=== PATIENT | female | born 1970 | race Caucasian/White ===

== ENCOUNTER 2022-06-19 10:21 | Outpatient (CLI) | payer OTHER, SELFPAY ==
--- OUTSIDE RECORDS SUMMARY | 2022-06-19 10:26 | XMS_ITS ---
:1970 Author Care Team Providers Name Role Phone Juan Carlos Duong Primary Care Provider Unavailable Allergies None recorded. Medications Name Status Start Date Stop Date ? ? albuterol sulfate HFA 90 mcg/actuation aerosol inhaler Active ? Not available erythromycin 5 mg/gram (0.5 %) eye ointment Active ? Not available lisinopril 20 mg-hydrochlorothiazide 12.5 mg tablet Active ? Not available TAKE 1 TABLET BY MOUTH DAILY nabumetone 500 mg tablet Active ? Not meghan ilable TAKE 1 TO 2 TABLETS BY MOUTH TWICE DAILY OneTouch Delica Plus Lancet 33 gauge Active ? Not available USE TO TEST TWICE DAILY OneTouch Ultra Test strips Active ? Not a vailable USE TO TEST ONCE DAILY TWICE DAILY NEEDED venlafaxine ER 37.5 mg capsule,extended release 24 hr Active ? Not available TAKE 1 CAPSULE BY MOUTH DAILY venlafaxine ER 75 mg capsule,extended release 24 hr Active ? Not available TAKE 1 CAPSULE BY MOUTH DAILY Problems None recorded. Procedures None recorded. Results Lab Results Date Name Specimen Result Interpretation Description Value Range Status Address ? 08/15/2021 Test in ? Message: ? ? Final Qu est Question- Diagnos tics Unlabeled - [place] [facility]: [address], [place] ? ? ? Specimen 2ss ? Final [facility] Type: Diagnostic s - [facility]: [address], [place] ? ? ? Test 4439/52 ? Final [facility] Ordered on Diagn ostics Req: - [facility]: [address], [place] ? ? ? Comment ? ? Final [facility] Diagnostic s - [place] [facility] Lab: [address], [place] 08/15/2021 MMR Immunity, Blood Normal Measles Ab 67.90 ? F inal [facility] Serum venous (IgG), AU/mL Diagnostic s Immune - [place] [facility] Status Lab: [address], [place] ? ? Blood Normal Mumps Virus 194.00 ? Final Ques t venous Ab (IgG), AU/mL Diagnos tics Immune - [place] [facility] Status Lab: [address], [place] ? ? Blood Normal Rubella Ab 4.42 ? Final [facility] venous (IgG), index Diagnostic s Immune - [place] [facility] Status Lab: [address], [place] 08/15/2021 Hepatitis B Blood Normal Hepatitis B 230 > Fi nal [facility] Surface Ab, venous Surface Ab mIU/mL or D iagnostics Quantitative, Immunity, Qn = - [place] Serum 10 Lab: [address], /mL [place] 08/15/2021 Varicella-zoste Blood Normal Varicella 751.00 ? Final [facility] r Igg Ab venous Zoster Virus index Di agnostics Screen, Serum Antibody - Fredis Leung (IgG) Lab: [address], [place] 08/15/2021 Patient Id ? Comment ? ? Final [facility] Approval Tiq Diag nostics Documentation - W ood Madhu Lab: [address], [place] ? ? ? Contact pankaj ? Final [facility] S Diagnostic s - [place] [facility] Lab: [address], [place] ? ? ? Tests all ? Final [facility] Affected tests Diagnost ics per - [place] [facility] order Lab: [address], [place] ? PPD (Purified ? No ? ? ? Protein observation Derivative), recorded. Skin Test Past Encounters 08/30/2021 Administrative Reason for Encounter; His tory and Physical Examination, Occupation [employer]: [address] , [place] [address], Ph. 08/15/2021 Juan Carlos Duong, , PA: [address] , [place] [address], Ph. Social History None recorded. Vaccine List Vaccine Type Hep B, adult 08/30/2021 influenza, injectable, quadrivalent, pre servative free 08/15/2021?0.5 mL Plan of Care Reminders Provider Appointments None recorded. ? ? Lab None recorded. ? ? Referral None recorded. ? ? Procedures None recorded. ? ? Surgeries None recorded. ? ? Imaging None recorded. ? ? Vitals None recorded.
[2022-06-19 14:55] LABS: Creatinine Urine 164.5 mg/dL
[2022-06-19 15:00] LABS: Microalbumin Creatinine Ratio 10 mg/g (0-30); Microalbumin Urine 2 mg/dL
[2022-06-19 22:12] LABS: Albumin* 4.5 g/dL (3.3-5.0); Chloride* 100 mmol/L (96-114); Sodium* 141 mmol/L (135-149)
[2022-06-19 22:13] LABS: Potassium* 5.2 mmol/L (3.6-5.1)
[2022-06-19 22:14] LABS: Cholesterol* 140 mg/dL (90-199)
[2022-06-19 22:15] LABS: Alanine Aminotransferase* 22 U/L (4-35); Alkaline Phosphatase* 89 U/L (40-150); Aspartate Amino Transferase* 22 U/L (12-35); Bilirubin Total* 0.2 mg/dL (0.1-1.5); Blood Urea Nitrogen* 26 mg/dL (7-30); Carbon Dioxide* 31 mmol/L (20-32); Creatinine* 0.7 mg/dL (0.5-1.5); Estimated Glomerular Filt Rate 103 ml/min; Glucose* 132 mg/dL (60-115); Total Protein* 7.8 g/dL (6.0-8.3); Triglycerides* 65 mg/dL (40-149)
[2022-06-19 22:16] LABS: Calcium* 9.1 mg/dL (8.4-10.6); HDL Cholesterol* 63 mg/dL (>=50); LDL Cholesterol Calculated 64 mg/dL (<100)
[2022-06-19 22:30] LABS: Vitamin D 25 Hydroxy* 60 ng/mL (30-80)
== END 2022-06-19 10:22 | disposition home or self-care (01) ==
PROVIDERS: PCP Family Medicine; Visit Provider Family Medicine
DX: E11.9 Type 2 diabetes mellitus without complications (principal); E78.00 Pure hypercholesterolemia, unspecified; E55.9 Vitamin D deficiency, unspecified
CPT/HCPCS: 80053; 80061; 82043; 82306; 82570

== ENCOUNTER 2023-01-25 17:40 | Emergency (ER) | payer OTHER, SELFPAY ==
[2023-01-25 19:14] VITALS: BP 135/89; PULSE 80; RESP 18; TEMP 36.3; O2SAT 99
--- NOTE | 2023-01-25 20:18 | CRLHL7_ITS ---
For Patients: As a result of the Cures Act, medical imaging exams and procedure reports are released immediately into your electronic medical record. You may view this report before your referring provider. If you have questions, please contact your health care provider. Indication: Trauma. Technique: Right knee, 2 views. Comparison: None. Findings/Impression: Bones: Alignment is normal. No fractures or bone lesions. No sign of acute injury. Joint spaces: Unremarkable. Soft tissues: Unremarkable. Dictated by Justin Cook MD @ 01/25/2023 9:00:46 PM (Electronically Signed)
[2023-01-25 21:00] VITALS: PULSE 84
--- NOTE | 2023-01-25 21:26 | ED_ITS ---
HPI - Extremity Injury (Lower) General Time Seen by Provider: 21:26 Date Seen: 01/25/23 Chief Complaint: Extremity Pain/Injury, Lower Stated Complaint: R knee pain Time Seen by Provider: 01/25/23 21:24 Source: patient, RN notes reviewed and old records reviewed Mode of arrival: wheelchair Limitations: no limitations History of Present Illness HPI Narrative: Patient is a very pleasant 52-year-old woman with history of left knee surgery who comes to the emergency room with complaints of right knee pain. Patient notes that approximately a week ago she sat down and felt and heard a crack in her right knee. She had some mild discomfort after that but has brat gradually been increasing and tonight the pain in her knee is so severe that she is having a hard time walking. She denies any shortness of breath, calf pain or history of DVT and has not been on any long car rides or plane trips. She notes her pain is mostly in the inside of her right knee and somewhat in the back. No swelling in this area. She did take Relafen earlier but it does not seem to be helping. Movement or weight-bearing definitely increases her discomfort. Related Data Home Medications Medication Instructions Recorded Confirmed hydrocortisone 2.5 % topical cream 1 applic topical 05/29/22 08/01/22 ketoconazole 2 % topical cream 1 applic topical 05/29/22 08/01/22 latanoprost 0.005 % eye drops drp ophthalmic (eye) 05/29/22 08/01/22 lisinopril 20 1 tab PO 05/29/22 08/01/22 mg-hydrochlorothiazide 12.5 mg tablet mupirocin 2 % topical ointment 1 applic topical 05/29/22 08/01/22 venlafaxine 75 mg capsule,extended 75 mg PO 05/29/22 08/01/22 release 24 hr Lcd 5% Salicyclic Acid topical 07/17/22 08/01/22 Multiple vitamin PO 07/17/22 08/01/22 Vitamin D&K PO 07/17/22 08/01/22 albuterol sulfate 90 mcg/actuation 2 inhalation PRN 07/17/22 08/01/22 aerosol inhaler magnesium oxide 400 mg (241.3 mg mg PO DAILY 07/17/22 08/01/22 magnesium) tablet Previous Rx's Medication Instructions Recorded cyclobenzaprine 10 mg tablet 10 mg PO TID PRN muscle spasm #60 06/16/22 tabs atorvastatin 10 mg tablet 10 mg PO QHS #90 tabs 11/09/22 nabumetone 500 mg tablet 500 mg PO TID PRN pain #90 tabs 11/14/22 semaglutide 0.25 mg or 0.5 mg (2 0.5 mg (0.8 mL) subcut QWEEK #3 mL 01/11/23 mg/3 mL) subcutaneous pen injector (Ventealapropriete) Allergies Allergy/AdvReac Type Severity Reaction Status Date / Time acetaminophen [From Percocet] Allergy Mild Itching Verified 10/23/22 15:57 cetirizine [From Zyrtec] Allergy Mild Itching Verified 10/23/22 15:57 oxycodone [From Percocet] Allergy Mild Itching Verified 10/23/22 15:57 Sulfa (Sulfonamide Allergy Mild itching Verified 10/23/22 15:57 Antibiotics) Review of Systems Status of ROS: Reports: 6 or more systems reviewed and unremarkable except as noted in History and below PFSH PFSH Medical History Rosacea blepharoconjunctivitis ?H10.829 - Rosacea conjunctivitis, unspecified eye (ICD-10) Achilles tendinosis of left lower extremity ?M67.88 - Other specified disorders of synovium and tendon, other site (ICD- 10) Surgical History History of lumbar discectomy ?Z98.890 - Other specified postprocedural states (ICD-10) S/P left knee arthroscopy ?Z98.890 - Other specified postprocedural states (ICD-10) History of arthroscopy of right shoulder (03/13/16) ?Z98.890 - Other specified postprocedural states (ICD-10) Social History (Updated 06/29/22 @ 09:16 by Thelma Damian ~ [facility], [facility]) Smoking Status: Former smoker What tobacco products do you use: cigarettes Smoking quit date/years: >15 years ago Do you use any of these nicotine containing products: None Second hand tobacco smoke exposure: No How often do you have a drink containing alcohol: never How often do you have six or more drinks on one occasion: Never AUDIT-C Alcohol total score: 0 Non-prescribed substance use: denies use Exam Narrative: Exam Narrative: Patient is alert and oriented. She has been waiting for an extended period of time and I sincerely appreciate her patient's No respiratory distress. Patient has some tenderness along the right medial knee line and along the medial aspect of the patella. She has also has tenderness noted in the medial popliteal fossa without any masses or nodules palpated. No calf pain with palpation Const: Vital Signs, click to edit/add: Vital Signs - 24 hr 01/25/23 19:14 01/25/23 21:00 01/25/23 22:00 Temperature 97.4 F L 98.0 F Pulse Rate [Right Dorsalis Pedis] 84 Pulse Rate [Right Pulse Oximeter] 80 Respiratory Rate 18 Blood Pressure [Ri ght Upper Arm] 135/89 Pulse Oximetry 99 Oxygen Delivery Me thod Room Air 01/25/23 22:50 01/25/23 22:51 01/25/23 22:52 Temperature 98.4 F 98.4 F 98.4 F Pulse Rate [Right Dorsalis Pedis] Pulse Rate [Right Pulse Oximeter] 74 74 Respiratory Rate 18 18 Blood Pressure [Ri ght Upper Arm] 122/74 122/74 Pulse Oximetry 99 Oxygen Delivery Me thod Room Air Course Course Hospital Course: Plain film of the knee had already been ordered by nursing staff due to high patient volume. I do think to do our due diligence will need to do an ultrasound to ensure no evidence of DVT given patient's pain behind the knee. Vital Signs Vital signs: Initial Vital Signs Temperature 97.4 F L 01/25/23 19:14 Temperature Source Temporal Artery Scan 01/25/23 19:14 Pulse Rate 80 01/25/23 19:14 Respiratory Rate 18 01/25/23 19:14 Blood Pressure 135/89 01/25/23 19:14 Blood Pressure Mean 104 01/25/23 19:14 Blood Pressure Position Sitting 01/25/23 19:14 Pulse Oximetry 99 01/25/23 19:14 Oxygen Delivery Method Room Air 01/25/23 19:14 Vital Signs Temperature 97.4 F L 01/25/23 19:14 Pulse Rate 80 01/25/23 19:14 Respiratory Rate 18 01/25/23 19:14 Blood Pressure 135/89 01/25/23 19:14 Pulse Oximetry 99 01/25/23 19:14 Oxygen Delivery Method Room Air 01/25/23 19:14 Temperature 98.4 F 01/25/23 22:52 Pulse Rate 74 01/25/23 22:52 Respiratory Rate 18 01/25/23 22:52 Blood Pressure 122/74 01/25/23 22:52 Pulse Oximetry 99 01/25/23 22:50 Oxygen Delivery Method Room Air 01/25/23 22:50 MDM - Extremity Injury (Lower) MDM Narrative Medical decision making narrative: 1. Right knee pain-suspect cartilaginous source with a tear or possibly flap causing discomfort. No evidence of DVT. X-ray is reassuring with no evidence of fracture. 2. Disposition-patient did remain in the ED for extended period while awaiting the ultrasound she was given [place] 01/3251 tablet p.o.. The plan had been to send her home on [place] we do not have any in [facility] and thus I did give her oxycodone 1 tablet p.o. see q.6 hours p.r.n. 4. Tablets. Further pain medications will need to be obtained through primary MD. I have instructed patient to follow-up with either primary MD or Orthopedics so as to be evaluated for possible MRI. Various asked me about the ER ordering the MRI but I have declined as I would not be able to follow up on those results. Patient has crutches at home. Will place in knee immobilizer. Partial weight-bearing for balance is suggested. Return to the emergency room for worsening symptoms. Medical Records Attestation: I reviewed the patient's medical records. Imaging Data Venous US: Attestation: I have reviewed the pertinent imaging results. Radiologist's impression: Deep veins: Sonographic imaging demonstrates the right common femoral, deep femoral, superficial femoral, popliteal, posterior tibial and the contralateral left common femoral veins to be fully compressible with normal color Doppler blood flow. Superficial veins: Greater saphenous vein is fully compressible. No popliteal cyst. IMPRESSION: Normal right lower extremity venous ultrasound, no sign of deep venous thrombosis. Right knee x-ray: Attestation: I have reviewed the pertinent imaging results. My impression: No obvious fractures. Radiologist's impression: Bones: Alignment is normal. No fractures or bone lesions.? No sign of acute injury.? Joint spaces: Unremarkable. Soft tissues: Unremarkable. Discharge Plan Discharge Clinical Impression: Acute injury of right knee cartilage Patient Disposition: Home, Self-Care Condition: Stable Additional Instructions: ibuprofen as needed for discomfort: [place] as needed for pain not relieved by ib uprofen or Relafen. [place] is a combination medication of Tylenol and a narcotic. Do not want to use alcohol nor use any benzodiazepine such as Ativan or Valium with it. knee immobilizer ice, crutches with partial weight bearing follow up with primary clinic for scheduling of an MRI: [facility] can also be reached at [phone] You may also elect o see ortho [phone] for an appointment Prescriptions: No Action latanoprost 0.005 % drops ophthalmic (eye) mupirocin 2 % ointment 1 applic topical Patient Comments: APPLY TOPICALLY TO THE AFFECTED AREA THREE TIMES DAILY lisinopril-hydrochlorothiazide 20-12.5 mg tablet 1 tab PO Patient Comments: TAKE 1 TABLET BY MOUTH DAILY ketoconazole 2 % cream 1 applic topical Patient Comments: APPLY TOPICALLY TO THE AFFECTED AREA AT BEDTIME hydrocortisone 2.5 % cream 1 applic topical Patient Comments: APPLY TOPICALLY TO THE AFFECTED AREA TWICE DAILY venlafaxine 75 mg capsule,extended release 24hr 75 mg PO cyclobenzaprine 10 mg tablet 10 mg PO TID PRN (Reason: muscle spasm) Qty: 60 1RF magnesium oxide 400 mg (241.3 mg magnesium) tablet PO DAILY Vitamin D&K PO Multiple vitamin PO albuterol sulfate 90 mcg/actuation HFA aerosol inhaler 2 inhalation PRN Lcd 5% Salicyclic Acid topical atorvastatin 10 mg tablet 10 mg PO QHS Qty: 90 2RF nabumetone 500 mg tablet 500 mg PO TID PRN (Reason: pain) Qty: 90 2RF Ozempic 0.25 mg or 0.5 mg (2 mg/3 mL) pen injector 0.5 mg subcut QWEEK Qty: 3 1RF Rx Instructions: NEW Dosing 0.5mg once weekly for diabetes Follow Up/Referrals: Ryne Hernandez MD [Primary Care Provider] - Stand Alone Forms: [facility]or Info Instructions
--- NOTE | 2023-01-25 21:26 | CRLHL7_ITS ---
For Patients: As a result of the Century Cures Act, medical imaging exams and procedure reports are released immediately into your electronic medical record. You may view this report before your referring provider. If you have questions, please contact your health care provider. INDICATION: Leg pain and swelling. TECHNIQUE: Ultrasound venous duplex lower right extremity. Compression venous exam was performed using river-scale, color Doppler, and spectral Doppler analysis. COMPARISON: None. FINDINGS: Deep veins: Sonographic imaging demonstrates the right common femoral, deep femoral, superficial femoral, popliteal, posterior tibial and the contralateral left common femoral veins to be fully compressible with normal color Doppler blood flow. Superficial veins: Greater saphenous vein is fully compressible. No popliteal cyst. IMPRESSION: Normal right lower extremity venous ultrasound, no sign of deep venous thrombosis. Dictated by Last Kong MD @ 01/25/2023 10:34:02 PM (Electronically Signed)
[2023-01-25 22:00] VITALS: TEMP 36.7
[2023-01-25] MEDS: HYDROCODONE-ACETAMIN 5-325 MG 1 TAB PO (22:00)
[2023-01-25 22:50] VITALS: BP 122/74; PULSE 74; RESP 18; TEMP 36.9; O2SAT 99
[2023-01-25 22:51] VITALS: TEMP 36.9
[2023-01-25 22:52] VITALS: BP 122/74; PULSE 74; RESP 18; TEMP 36.9
== END 2023-01-25 22:52 | disposition home or self-care (01) ==
PROVIDERS: Emergency Provider Family Medicine; PCP Family Medicine
DX: S80.911A Unspecified superficial injury of right knee, initial encounter (principal)
CPT/HCPCS: 73560; 93971; 99283; 99284; A9270

== ENCOUNTER 2023-08-27 09:19 | Outpatient (CLI) | payer OTHER, SELFPAY ==
--- OUTSIDE RECORDS SUMMARY | 2023-08-27 09:22 | XMS_ITS | Continuity of Care Document ---
Author Name Unknown Organization [facility] Address [address] [place] [address] Phone Care Team Providers Care Psychiatric Np Name Role Phone Oneal Avendano MD Unavailable Unavailable Allergies, Adverse Reactions, Alerts Substance Reaction Status Criticality OXYCODONE HCL Active No Information acetaminophen Active No Information CETIRIZINE HCL Active No Informatio n Medications Medication Instructions Dosage Effective Dates (start - stop) Status Comments atorvastatin 10 mg tablet take 1 tablet by oral route every day 10 MG - Active lisinopril 20 mg-hydrochlorothiazi de 12.5 mg tablet take 1 tablet by oral route every day 1.00 tablet - Active venlafaxine ER 75 mg tablet,extended release 24 hr take 1 tablet by oral route every day in the morning at the same time each day with food 75 MG - Active venlafaxine ER 37.5 mg tablet,extended release 24 hr take 1 tablet by oral route every day in the morning at the same time each day with food 37.5 MG - Active nabumetone 500 mg tablet take 1 Tablet by oral route 2 times every day 500 MG - Active K2-D3 10,000 (unknown strength) Not Available - Active POTASSIUM CITRATE ER (unknown strength) take 1 tablet by oral route every day Not Available - Active ONE-DAILY MULTI-VITAMIN (unknown strength) take 1 tablet by oral route every day with food Not Available - Active Vitamin C 1,000 mg tablet take 1 Tablet by Oral route every day 1 Tablet - Active CALCIUM MAGNESIUM (unknown strength) with zinc Not Available - Active hydrocortisone 2.5 % topical cream apply by topical route 2 times every day a thin layer to the affected area(s) 0.00 - Active ketoconazole 2 % topical cream apply by topical route every day to the affected area(s) 0.00 - Active latanoprost 0.005 % eye drops instill 1 drop by ophthalmic route every day into affected eye(s) in the evening 1.00 drop - Active ketoconazole 2 % shampoo apply by topical route every day to the affected area(s), lather, leave in place for 5 minutes, and then rinse off with water 0.00 - Active Relafen 500 mg Tab take 2 tablet (1000MG) by oral route 2 times every day - No Longer Active Aleve 220 mg Cap Take 1 daily - No Longer Active Yulia 180 mg Tab take 1 tablet (180MG) by oral route every day - No Longer Active Microgestin Fe 1.5/30 (28) 1.5 mg-30 mcg Tab take 1 tablet by oral route every day 1.00 tablet - No Longer Active Problems Condition Type Effective Dates (start - stop) Clini burak Status Comments No Known Problems Procedures Procedure Date Office/Outpatient Visit, New Routine Venipuncture Rbc Sed Rate, Nonautomated Assay Of Creatinine Assay Alkaline Phosphatase Transferase (Ast) (Sgot) Alanine Amino (Alt) (Sgpt) Assay Of Urea Nitrogen Assay Of Blood/Uric Acid CReactive Protein Complete Cbc WAuto Diff Wbc Office/Outpatient Visit, Est Results Test Name Date and Time Measure Units Reference Range Abnormal Flag Status Comments Panel Description: CBC 5 part diff Final Neutrophils# 2 10:27:00 3.93 K/uL 2.00-7.50 Final Neutrophil % 2 10:27:00 56.80 % 0.00-99.00 Final Eosinophil # 2 10:27:00 0.16 K/uL 0.00-0.50 Final Eosinophil % 2 10:27:00 2.30 % 0.00-7.00 Final Basophil # 2 10:27:00 0.06 K/uL 0.00-0.20 Final Basophil % 2 10:27:00 0.80 % 0.00-99.00 Final WBC 2 10:27:00 6.9 K/uL 4.0-10.0 Final RBC 2 10:27:00 4.95 M/uL 3.80-5.80 Final Hemoglobin 2 10:27:00 14.5 g/dL 11.5-16.0 Final Hematocrit 2 10:27:00 44.3 % 37.0-47.0 Final MCV 2 10:27:00 89 fL 80-100 Final MCH 2 10:27:00 29.3 pg 27.0-32.0 Final MCHC 2 10:27:00 32.7 g/dL 32.0-36.0 Final RDW 2 10:27:00 12.7 % 11.0-16.0 Final Platelet Count 2 10:27:00 174 K/uL 150-500 Final MPV 2 10:27:00 8.3 fL 6.0-11.0 Final Lymphocyte% 2 10:27:00 33.60 % 25.00-50.00 Final Lymphocyte # 2 10:27:00 2.3 K/uL 1.0-4.0 Final Monocytes # 2 10:27:00 0.45 K/uL 0.20-1.00 Final Monocytes % 2 10:27:00 6.50 % 2.00-10.00 Final Panel Description: ESR Final ESR 2 10:34:00 19 mm/hr 0-25 Final Panel Description: NSAID Final AST 2 11:13:00 27 U/L 5-34 Final ALT 2 11:13:00 27 IU/L 5-35 Final BUN 2 11:13:00 17.3 mg/dL 11.0-37.0 Final Creatinine 2 11:13:00 0.630 mg/dL 0.500-1.300 Final B/C Ratio 2 11:13:00 27.5 Ratio Final Uric Acid 2 11:13:00 5.7 mg/dL 2.6-6.0 Final Alk Phos 2 11:13:00 93 U/L 30-103 Final GFR 2 11:13:00 105.1 mL/min/1.7 3 m2 Final Panel Description: CRP Final CRP 2 11:13:00 0.39 MG/DL 0.00-0.60 Final Advance Directives Directive Yes / No Effective Date File Name No Information Encounters Encounter Description Practice Location Reason(s) For Visit Diagnoses Date Provider Providers Copied on Encounter Office/Outpa tient Visit, [facility], [address], [place], [address], [place] tel:[phone] [facility] , Primary osteoarthrit is, unspecified handLong term (current) use of non-steroida l anti-inflamm atories (NSAID) 2 Juan Alberto No. [facility] [address], [place], [address], [place]. tel:[phone] Referring Provider: Oneal Ceballos, [facility] [address], [place], [address]. tel:[phone] [facility], [address], [place], [address], [place] tel:[phone] [facility] , No Information 2 Skerma No. [facility] [address], [place], [address], [place]. tel:[phone] [facility], [address], [place], [address], [place] tel:[phone] [facility] , No Information 2 Skemp Oneal. [facility] [address], [place], [address], [place]. tel:[phone] Office/Outpa tient Visit, [facility], [address], [place], [address], [place] tel:[phone] [facility] , Joint Pain (chief complaint) Back Pain (chief complaint) Degeneration of lumbar or lumbosacral intervertebr al discPain in joint involving lower legLONG-TERM (CURRENT) USE OF NON-STEROIDA L ANTI-INFLAMM ATORIES 2 Skemp Oneal. [facility] [address], [place], [address], [place]. tel:[phone] Referring Provider: Stefano Leon, [facility] [address] [place] [address], [address]. tel:[phone] Family History Family Member Type Diagnosis Age At Onset No Information Payers Payer name Insurance type Covered libertarian ID Authoriza tion(s) [facility] CI [id number] Social History Type Description Quantity Date Captured Comments Alcohol Use Details Unknown Caffeine Use Details Unknown Tobacco Use Status No Information Smoking Status No Information Sex Female Vital Signs Date / Time: Height Weight BMI Pulse Rate Blood Pressure Temperature Respiratory Rate Body Surface Area Head Circumference Head Circ. Percentile Wt./Rosendo. 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
== END 2023-08-27 09:20 | disposition home or self-care (01) ==
PROVIDERS: PCP Family Medicine; Visit Provider Physician Assistant Medical
DX: Z00.00 Encounter for general adult medical examination without abnormal findings (principal); R21 Rash and other nonspecific skin eruption; E11.9 Type 2 diabetes mellitus without complications; I10 Essential (primary) hypertension; F32.A Depression, unspecified; E66.9 Obesity, unspecified; E78.00 Pure hypercholesterolemia, unspecified
CPT/HCPCS: 80061; 82043; 82570; 87070; 87186

== ENCOUNTER 2024-03-11 10:37 | Outpatient (CLI) | payer OTHER, SELFPAY ==
--- OUTSIDE RECORDS SUMMARY | 2024-03-11 10:39 | XMS_ITS | Continuity of Care Document ---
Author Organization [facility] Address [address] [place] [address] Phone Care Team Providers Care Liquor Tester Name Role Phone Oneal Avendano MD Unavailable [...] New [facility], [address], [place], [address], [place] tel:[phone] [facility] , Primary osteoarthrit is, unspecified handLong term (current) use of non-steroida l anti-inflamm atories (NSAID) 2 Juan Alberto No. [facility] [address], [place], [address], [place]. tel:[phone] Referring Provider: Oneal Ceballos, [facility] [address], [place], [address]. tel:[phone] [facility], [address], [place], [address], [place] tel:[phone] [facility] , No Information 2 Juan Alberto No. [facility] [address], [place], [address], [place]. tel:[phone] [facility], [address], [place], [address], [place] tel:[phone] [facility] , No Information 2 Skemp Oneal. [facility] [address], [place], [address], [place]. tel:[phone] Office/Outpa tient Visit, Est [facility], [address], [place], [address], [place] tel:[phone] [facility] , Joint Pain (chief complaint) Back Pain (chief complaint) Degeneration of lumbar or lumbosacral intervertebr al discPain in joint involving lower legLONG-TERM (CURRENT) USE OF NON-STEROIDA L ANTI-INFLAMM ATORIES 2 Skemp Oneal. [facility] [address], [place], [address], [place]. tel:[phone] Referring Provider: Stefano Leon, [facility] [address] [place] [address], [address]. 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
== END 2024-03-11 10:38 | disposition home or self-care (01) ==
LOC: LKVREF 10:38
PROVIDERS: PCP Family Medicine; Visit Provider Family Medicine
DX: H10.9 Unspecified conjunctivitis (principal)
CPT/HCPCS: 87070

== ENCOUNTER 2024-05-09 09:46 | Outpatient (CLI) | payer OTHER, SELFPAY ==
--- OUTSIDE RECORDS SUMMARY | 2024-05-13 22:31 | XMS_ITS | Continuity of Care Document ---
Author Organization [facility] Address [address] [place] [address] Phone Care Team Providers Care Data Technical Lead Name Role Phone Oneal Avendano MD Unavailable Unavailable Allergies, Adverse Reactions, Alerts Substance Reaction Status Criticality OXYCODONE HCL Active No Information acetaminophen Active No Information CETIRIZINE HCL Active No Informatio n Medications Medication Instructions Dosage Effective Dates (start - stop) Status Comments ketoconazole 2 % shampoo apply by topical route every day to the affected area(s), lather, leave in place for 5 minutes, and then rinse off with water 0.00 - Active latanoprost 0.005 % eye drops instill 1 drop by ophthalmic route every day into affected eye(s) in the evening 1.00 drop - Active ketoconazole 2 % topical cream apply by topical route every day to the affected area(s) 0.00 - Active hydrocortisone 2.5 % topical cream apply by topical route 2 times every day a thin layer to the affected area(s) 0.00 - Active CALCIUM MAGNESIUM (unknown strength) with zinc Not Available - Active Vitamin C 1,000 mg tablet take 1 Tablet by Oral route every day 1 Tablet - Active ONE-DAILY MULTI-VITAMIN (unknown strength) take 1 tablet by oral route every day with food Not Available - Active POTASSIUM CITRATE ER (unknown strength) take 1 tablet by oral route every day Not Available - Active K2-D3 10,000 (unknown strength) Not Available - Active nabumetone 500 mg tablet take 1 Tablet by oral route 2 times every day 500 MG - Active venlafaxine ER 37.5 mg tablet,extended release 24 hr take 1 tablet by oral route every day in the morning at the same time each day with food 37.5 MG - Active venlafaxine ER 75 mg tablet,extended release 24 hr take 1 tablet by oral route every day in the morning at the same time each day with food 75 MG - Active lisinopril 20 mg-hydrochlorothiazi de 12.5 mg tablet take 1 tablet by oral route every day 1.00 tablet - Active atorvastatin 10 mg tablet take 1 tablet by oral route every day 10 MG - Active Relafen 500 mg Tab take 2 tablet (1000MG) by oral route 2 times every day - No Longer Active Microgestin Fe 1.5/30 (28) 1.5 mg-30 mcg Tab take 1 tablet by oral route every day 1.00 tablet - No Longer Active Yulia 180 mg Tab take 1 tablet (180MG) by oral route every day - No Longer Active Aleve 220 mg Cap Take 1 daily - No Longer Active Problems Condition Type [...] [facility], [address], [place], [address], [place] tel:[phone] [facility] , Primary osteoarthrit is, unspecified handLong term (current) use of non-steroida l anti-inflamm atories (NSAID) 2 Juan Alberto No. [facility] [address], [place], [address], [place]. tel:[phone] Referring Provider: Oneal Ceballos, [facility] [address], [place], [address]. tel:[phone] [facility], [address], [place], [address], [place] tel:[phone] [facility] , No Information 2 Juan Alberto No. [facility] [address], [place], [address], [place]. tel:[phone] [facility], [address], [place], [address], [place] tel:[phone] [facility] , No Information 2 Skemp Oneal. [facility] [address], [place], [address], [place]. tel:[phone] Office/Outpa tient Visit, Est [facility], [address], [place], [address], [place] tel:[phone] [facility] , Joint Pain (chief complaint) Back Pain (chief complaint) Degeneration of lumbar or lumbosacral intervertebr al discPain in joint involving lower legLONG-TERM (CURRENT) USE OF NON-STEROIDA L ANTI-INFLAMM ATORIES 2 Skemp Oneal. [facility] [address], [place], [address], [place]. tel:[phone] Referring Provider: Stefano Leon, [facility] [address] [place] [address], [address]. 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
== END 2024-05-09 09:47 | disposition home or self-care (01) ==
LOC: NFLDREF 05-13 22:29
PROVIDERS: PCP Family Medicine; Referring Provider Family Medicine; Visit Provider Physician Assistant Medical
DX: I10 Essential (primary) hypertension (principal); E78.00 Pure hypercholesterolemia, unspecified; E11.9 Type 2 diabetes mellitus without complications
CPT/HCPCS: 80053; 80061; 82043; 82570

== ENCOUNTER 2024-12-17 12:01 | Outpatient (CLI) | payer OTHER, SELFPAY ==
[2024-12-17 22:58] LABS: Chlamydia DNA Amplified* NOT DETECTED (No Detected); GC DNA Amplified* NOT DETECTED (No Detected)
[2024-12-19 09:01] LABS: HPV Source Cervix; HPV, High Risk by TMA Not Detected
== END 2024-12-17 12:02 | disposition home or self-care (01) ==
PROVIDERS: PCP Physician Assistant Medical; Visit Provider Physician Assistant Medical
DX: I10 Essential (primary) hypertension (principal); E78.00 Pure hypercholesterolemia, unspecified; E66.9 Obesity, unspecified; E11.9 Type 2 diabetes mellitus without complications; N95.1 Menopausal and female climacteric states; Z11.3 Encounter for screening for infections with a predominantly sexual mode of transmission; Z12.4 Encounter for screening for malignant neoplasm of cervix; Z11.51 Encounter for screening for human papillomavirus (HPV)
CPT/HCPCS: 80053; 80061; 82043; 82570; 82607; 84443; 87491; 87591; 87624; 87625; 88141; 88142

== ENCOUNTER 2025-03-17 13:22 | Outpatient (CLI) | payer OTHER, SELFPAY ==
--- NOTE | 2025-03-17 13:40 | CRLHL7_ITS ---
For Patients: As a result of the Century Cures Act, medical imaging exams and procedure reports are released immediately into your electronic medical record. You may view this report before your referring provider. If you have questions, please contact your health care provider. INDICATION: BILATERAL SCREENING MAMMOGRAM, ASYMPTOMATIC 54 Y/O FEMALE COMPARISON: 10/28/2021, 05/17/2020, 10/07/2018 TECHNIQUE: Digital mammogram in CC and MLO projections including computer-aided detection (CAD) and tomosynthesis. BREAST COMPOSITION: There are scattered areas of fibroglandular density. FINDINGS: No suspicious findings. ASSESSMENT: BI-RADS 1 Negative RECOMMENDATION: Annual screening mammogram. A lay language report of this examination will be provided to the patient. Dictated by: Last Espinosa MD @ 03/18/2025 09:33:39 (Electronically Signed)
== END 2025-03-17 13:23 | disposition home or self-care (01) ==
LOC: MAMMO 13:22
PROVIDERS: PCP Physician Assistant Medical; Visit Provider Physician Assistant Medical
DX: Z12.31 Encounter for screening mammogram for malignant neoplasm of breast (principal)
CPT/HCPCS: 77063; 77067

== ENCOUNTER 2025-05-11 10:00 | Outpatient (RCR) | payer OTHER, SELFPAY | END 2025-09-08 23:59 | disposition home or self-care (01) | PROVIDERS: PCP Physician Assistant Medical; Visit Provider Physician Assistant Medical | DX: M54.2 Cervicalgia (principal); Z51.89 Encounter for other specified aftercare | CPT/HCPCS: 97110; 97140; 97162 ==

== ENCOUNTER 2025-07-15 08:31 | Outpatient (CLI) | payer OTHER, SELFPAY | END 2025-07-15 08:32 | disposition home or self-care (01) | PROVIDERS: PCP Physician Assistant Medical; Visit Provider Physician Assistant Medical | DX: R00.2 Palpitations (principal); R07.9 Chest pain, unspecified; R53.83 Other fatigue | CPT/HCPCS: 80053; 82607; 84443 ==

== ENCOUNTER 2025-08-04 13:50 | Outpatient (CLI) | payer OTHER, SELFPAY ==
[2025-08-04 14:45] VITALS: BP 142/82; PULSE 111; RESP 16
--- NOTE | 2025-08-04 14:54 | W.PM.STED ---
Stress Test Note Date Date Seen: 08/04/25 Date of test: 08/04/25 Providers Primary care provider: Marge Suggs Stress test physician: Geneva Sanders Stress Test Note Stress test ordered: Stress Echo Indication for test: Chest pain Stress test medicine: None Results discussion: Resting EKG: Sinus rhythm, 86 beats per minute. Resting blood pressure: 120/80 Stress test: Patient is consented on the ordered treadmill exercise stress echo and agrees to proceed. [place] protocol was followed. On patient's resting monitoring just before we started, noted ventricular ectopy with bigeminy, did print out an EKG. Patient does feel frequent palpitations and is noted to have PVCs baseline. She was not having any chest pain, stress testing proceeded. Patient was able to exercise to 7 minutes 41 seconds, requesting to stop after reaching target heart rate and reaching exercise capacity. She had frequent PVCs, bigeminy, I did see 2 episodes of couplets. Patient felt like her heart was beating fast in general, was not necessarily noting the PVCs at this time. There were no other rhythm disturbances, no diagnostic ischemic change. Her exercise level was equivalent to 9.1 Mets. She reached a maximum heart rate of 163 which was 117% of a calculated target heart rate of 139. She had a maximum blood pressure of 164/86, rate pressure product of 26,732. She did not have any chest pain, no concerning symptoms during this test. Await echo images to couple this for a full formal diagnostic. Impression: Subjectively negative, objectively negative EKG for ischemia but significant ventricular ectopy noted. Follow up suggested: Patient discharged in stable condition. She does have cardiology follow-up scheduled on August 26, completed a ZIO patch and results pending per patient report. Reviewed with her that low-dose beta-mustapha can help suppress the ventricular ectopy and PVCs. Do agree that she should see Cardiology. Will message her primary and make recommendation for low-dose beta mustapha like metoprolol XL 25 mg daily while awaiting Cardiology consultation unless there are contraindications, will leave this to her primary provider to address. Await echo images to couple her report for full formal diagnostic.
== END 2025-08-04 13:51 | disposition home or self-care (01) ==
LOC: STRESS 13:52
PROVIDERS: PCP Physician Assistant Medical; Visit Provider Physician Assistant Medical
DX: R07.9 Chest pain, unspecified (principal); R00.2 Palpitations
CPT/HCPCS: 93016; 93325; 93351